=== PATIENT | female | born 1995 ===

== ENCOUNTER 2017-04-10 23:49 | Inpatient (IN) | payer MEDICAID ==
[2017-04-10 23:55] VITALS: BMI 27.3
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
[2017-04-11 00:28] LABS: BASO % 0.3 % (0.0-2.0); EOS % 0.2 % (0.0-4.0); HEMOGLOBIN 13.3 g/dL (12.0-16.0); LYMPH # 1.4 K/uL (1.0-4.3); LYMPH % 11.8 % (20.0-40.0); MEAN CELL VOLUME 86.9 fl (81.0-99.0); MEAN CORPUSCULAR HEMOGLOBIN 28.5 pg (27.0-31.0); MEAN CORPUSCULAR HGB CONC 32.8 g/dL (33.0-37.0); MEAN PLATELET VOLUME 8.6 fl (7.2-11.7); MONO # 0.8 K/uL (0.0-0.8); MONO % 6.6 % (0.0-10.0); NEUT # 9.8 K/uL (1.8-7.0); NEUT % 81.1 % (50.0-75.0); NRBC % 0.1 % (0.0-0.0); RBC 4.68 Mil/uL (3.80-5.20); RED CELL DISTRIBUTION WIDTH 13.4 % (11.5-14.5); WHITE BLOOD COUNT 12.1 K/uL (4.8-10.8)
[2017-04-11 00:34] LABS: SALICYLATE < 1.0 mg/dl
[2017-04-11 00:35] LABS: ACETAMINOPHEN < 10.0 ug/ml (10.0-30.0); ALB/GLOB RATIO 1.4 (1.0-2.1); ALBUMIN 5.1 g/dL (3.5-5.0); ALT/SGPT 38 U/L (9-52); AST/SGOT 42 U/L (14-36); BLOOD UREA NITROGEN 11 mg/dl (7-17); CALCIUM 9.2 mg/dL (8.4-10.2); GFR AFRICAN-AMERICAN > 60; GFR NON-AFRICAN AMERICAN > 60
[2017-04-11 04:08] VITALS: O2SAT 100
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
--- NOTE | 2017-04-11 05:21 | CT ---
EXAM: CT Cervical Spine Without Intravenous Contrast CLINICAL HISTORY: 22 years old, female; Pain; Neck pain; Additional info: Head injury intoxicated TECHNIQUE: Axial computed tomography images of the cervical spine without intravenous contrast. This CT exam was performed using one or more of the following dose reduction techniques: automated exposure control, adjustment of the mA and/or kV according to patient size, and/or use of iterative reconstruction technique. Coronal and sagittal reformatted images were created and reviewed. COMPARISON: No relevant prior studies available. FINDINGS: Vertebrae: No acute fracture. Alignment: Straightening and slight reversal of the normal curvature of the cervical spine, possibly muscular in origin. Discs/spinal canal/neural foramina: No acute findings. Soft tissues: Symmetric Lung apices: The visualized lung apices are clear. IMPRESSION: No acute fracture.
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
--- NOTE | 2017-04-11 05:58 | ED PDOC ---
- Laboratory Results Result Diagrams: 04/10/17 00:22 04/10/17 00:22 - ECG O2 Sat by Pulse Oximetry: 100 Medical Decision Making Medical Decision Makin Pt. resting comfortably. CT's negative. Seen by Crisis, to be admitted under Dr. Carmona with dx: Depression. Disposition - Clinical Impression Clinical Impression: Depression - POA Present On Arrival: None - Disposition Disposition: Admitted as In-Patient Disposition Time: 05:58 Condition: STABLE
[2017-04-11 07:53] LABS: BARBITURATES, UR NEGATIVE (NEGATIVE); BENZODIAZEPINES, UR NEGATIVE (NEGATIVE); OPIATES, UR NEGATIVE (NEGATIVE); PHENCYCLIDINE, UR NEGATIVE (NEGATIVE)
[2017-04-11] MEDS ORDERED: Alum-Mag Hydrox-Simethicone Susp (30 mL) PO PRN (11:43)
[2017-04-11] MEDS ORDERED: DiphenhydrAMINE 50 mg/ml Inj IM PRN (11:43)
[2017-04-11] MEDS ORDERED: Magnesium Hydroxide Susp 30 ml UD PO PRN (11:43)
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
[2017-04-11] MEDS: Multivitamin With Minerals Tab PO SCH (17:19)
[2017-04-12 06:56] LABS: HDL CHOLESTEROL 81 MG/DL (30-70)
[2017-04-12 07:08] LABS: LDL CHOLESTEROL 43 mg/dL (0-129)
[2017-04-12] MEDS: Multivitamin With Minerals Tab PO SCH (09:33)
--- NOTE | 2017-04-12 10:52 | PCM.PYCHPN ---
Psychiatric Progress Note - Psychiatric Progress Note Patient seen today, length of contact: discussed with team Patient Chief Complaint: how long do you think i need to stay? Problems Identified/Issues Discussed: pt now stating she does not think she is an alcoholic. she states "i enjoy drinking" she does not think her recent behavior is a problem. she continues to deny reliable memories about what happened prior to admission. 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 she has periods of irritability. she denies any withdrawal symptoms. Medical Problems: refused to go to therapy Medication Change: No Medical Record Reviewed: Yes Mental Status Examination - Cognitive Function Orientation: Person, Place, Situation, Time Memory: Intact Attention: WNL Association: WNL Fund of Knowledge: [facility] Decription of patient's judgement and insights: fair - Mood Mood: Depressed - Affect Affect: Depressed - Speech Speech: Appropriate - Formal Thought Process Formal Thought Process: No Impairment - Suicidal Ideation Suicidal Ideation: No - Homicidal Ideation Homicidal Ideation: No Goal/Treatment Plan - Goal/Treatment Plan Need for Continued Stay: Remain at risks for inpatient hospitalization, Discharge may exacerbated symptoms Progress Toward Problem(s) and Goals/Treatment Plan: alcohol dependence mood disorder unspecified will continue current treatment lower ativan tomorrow t/c starting an antidepressant, but as of now pt does not want disposition planning Estimated Date of D/C: 04/16/17
[2017-04-13] MEDS: Multivitamin With Minerals Tab PO SCH (10:32)
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
[2017-04-13 16:05] VITALS: BP 131/73; PULSE 91; RESP 18; TEMP 99.1
== END 2017-04-13 18:19 | disposition home or self-care (01) | DRG 751 ==
LOC: H.ER 23:49 → H.EROBSV 04-11 00:10 → H.ERHOLD 04-11 05:56 → OBSVTOIN 04-11 05:56 → H.PSYCH 04-11 06:54
PROVIDERS: ADMIT Psychiatry & Neurology Psychiatry; ATTEND Psychiatry & Neurology Psychiatry
PROC: HZ2ZZZZ Detoxification Services for Substance Abuse Treatment (ICD-10-PCS; principal; 2017-04-11)
PROC: HZ59ZZZ Individual Psychotherapy for Substance Abuse Treatment, Supportive (ICD-10-PCS; 2017-04-11)
PROC: GZHZZZZ Group Psychotherapy (ICD-10-PCS; 2017-04-11)
DX: F10.229 Alcohol dependence with intoxication, unspecified (principal); Z78.1 Physical restraint status; F32.9 Major depressive disorder, single episode, unspecified; F14.10 Cocaine abuse, uncomplicated; Y90.8 Blood alcohol level of 240 mg/100 ml or more; F17.210 Nicotine dependence, cigarettes, uncomplicated; F12.10 Cannabis abuse, uncomplicated; F39 Unspecified mood [affective] disorder

== ENCOUNTER 2018-04-12 10:46 | Inpatient (IN) | payer MEDICAID ==
[2018-04-12 11:03] VITALS: BMI 24.9
[2018-04-12] MEDS ORDERED: Sodium Chloride 0.9% 1,000 ML IV STA ×2 (11:25→17:01)
--- NOTE | 2018-04-12 11:27 | ED PDOC ---
HPI: Psych/Substance Abuse Time Seen by Provider: 04/12/18 11:14 Chief Complaint (Nursing): Psychiatric Evaluation Chief Complaint (Provider): Drank rubbing alcohol History Per: Patient History/Exam Limitations: no limitations Onset/Duration Of Symptoms: Hrs Current Symptoms Are (Timing): Still Present Modifying Factor(s): Alcohol Additional Complaint(s): 23 yo female with no medical problems presents with throat irrigation after drinking rubbing alcohol. Pt states she wanted to because her and her boyfriend broke up. Pt states she is tired and does not want to talk. Past Medical History Reviewed: Historical Data, Nursing Documentation, Vital Signs Vital Signs: Last Vital Signs Temp 97.2 F L 04/12/18 11:03 Pulse 103 H 04/12/18 11:03 Resp 17 04/12/18 11:03 BP 137/83 04/12/18 11:03 Pulse Ox 97 04/12/18 11:03 - Medical History PMH: No Chronic Diseases Denies: Diabetes, Hepatitis, HIV, HTN, Chronic Kidney Disease, Seizures, Sexually Transmitted Disease - Surgical History Surgical History: No Surg Hx - Family History Family History: States: Unknown Family Hx - Living Arrangements Living Arrangements: With Family - Social History Current smoker - smoking cessation education provided: No - Home Medications Home Medications: Ambulatory Orders Medication Instructions Recorded Pantoprazole [Protonix] 40 mg PO DAILY #30 ect 04/16/18 - Allergies Allergies/Adverse Reactions: Allergies Allergy/AdvReac Type Severity Reaction Status Date / Time No Known Allergies Allergy Verified 04/13/18 00:01 Review of Systems ROS Statement: Except As Marked, All Systems Reviewed And Found Negative Constitutional: Negative for: Fever, Chills ENT: Positive for: Throat Pain Gastrointestinal: Negative for: Nausea, Vomiting, Abdominal Pain Neurological: Negative for: Weakness, Numbness Physical Exam - Reviewed Nursing Documentation Reviewed: Yes Vital Signs Reviewed: Yes - Physical Exam Appears: Positive for: Well, Non-toxic, No Acute Distress Head Exam: Positive for: ATRAUMATIC, NORMAL INSPECTION, NORMOCEPHALIC Skin: Positive for: Normal Color, Warm, DRY Eye Exam: Positive for: Normal appearance, EOMI, PERRL ENT: Positive for: Normal ENT Inspection Neck: Positive for: Normal, Painless ROM Cardiovascular/Chest: Positive for: Regular Rate, Rhythm Respiratory: Positive for: CNT, Normal Breath Sounds Gastrointestinal/Abdominal: Positive for: Normal Exam, Soft Back: Positive for: Normal Inspection Extremity: Positive for: Normal ROM Neurologic/Psych: Positive for: Alert, accounting instructor II-XII, Oriented, Gait. Negative for : Aphasia - Laboratory Results Result Diagrams: 04/12/18 12:24 04/12/18 12:24 - ECG O2 Sat by Pulse Oximetry: 97 Medical Decision Making Medical Decision Makin - Discussed with Poison Control. Check for ketones in urine for isopropyl , may cause false elevation of creatinine. 1700 - Ketones 80 in urine. Pt prefers to drink water. Repeat urine ordered. 1819 - Mother states when she went home and the empty bottle was peroxide not rubbing alcohol. Mother states it was purchased over the counter. Contact poison control. They states OTC percentage can be irritating but wont cause damage. 1999 - Case discussed with Dr. More and Dr. Kitchen. Pt seen multiple times in ER sticking her fingers down her throat. Disposition - Clinical Impression Clinical Impression: Depression - Patient ED Disposition Is Patient to be Admitted: Yes - Disposition Disposition Time: 20:00 Condition: FAIR
[2018-04-12 12:46] LABS: ACETAMINOPHEN < 10.0 ug/ml (10.0-30.0); SALICYLATE < 1.0 mg/dl
[2018-04-12 12:53] LABS: BASO % 0.3 % (0.0-2.0); HEMOGLOBIN 12.4 g/dL (12.0-16.0); LYMPH # 0.7 K/uL (1.0-4.3); LYMPH % 5.3 % (20.0-40.0); MEAN CORPUSCULAR HEMOGLOBIN 28.9 pg (27.0-31.0); MEAN CORPUSCULAR HGB CONC 33.9 g/dL (33.0-37.0); MONO # 0.6 K/uL (0.0-0.8); MONO % 4.5 % (0.0-10.0); NEUT # 11.2 K/uL (1.8-7.0); NEUT % 89.9 % (50.0-75.0); NRBC % 0.1 % (0.0-0.0); PLATELET COUNT 305 K/uL (130-400); RBC 4.29 Mil/uL (3.80-5.20); RED CELL DISTRIBUTION WIDTH 15.4 % (11.5-14.5); WHITE BLOOD COUNT 12.4 K/uL (4.8-10.8)
[2018-04-12 12:55] LABS: BLOOD UREA NITROGEN 9 mg/dl (7-17); GFR NON-AFRICAN AMERICAN > 60
[2018-04-12 12:56] LABS: ALB/GLOB RATIO 1.5 (1.0-2.1); ALBUMIN 5.1 g/dL (3.5-5.0); AST/SGOT 40 U/L (14-36); CALCIUM 9.8 mg/dL (8.4-10.2)
[2018-04-12 12:57] LABS: ALT/SGPT 33 U/L (9-52)
[2018-04-12 14:46] LABS: LYMPHOCYTE 5 % (20-50); NEUTROPHIL 90 % (42-75); TOTAL CELLS COUNTED 100
[2018-04-12 14:47] LABS: ANISOCYTOSIS MODERATE; MICROCYTOSIS SLIGHT; MONOCYTE 5 % (0-10); OVALOCYTES MODERATE; PLATELET ESTIMATE NORMAL (NORMAL); TEARDROP CELLS SLIGHT
[2018-04-12 14:48] LABS: BURR CELLS SLIGHT; LARGE PLATELETS PRESENT
[2018-04-12 16:14] LABS: SQUAMOUS EPITHIAL 3 /hpf (0-5); URINE BACTERIA RARE (<OCC); URINE BILIRUBIN NEGATIVE (NEGATIVE); URINE BLOOD NEGATIVE (NEGATIVE); URINE CLARITY CLEAR (Clear); URINE COLOR YELLOW (YELLOW); URINE GLUCOSE (UA) 150 mg/dL (Normal); URINE LEUKOCYTE ESTERASE NEG Leu/uL (Negative); URINE PROTEIN NEGATIVE (NEGATIVE); URINE UROBILINOGEN 0.2-1.0 mg/dL (0.2-1.0)
[2018-04-12] MEDS ORDERED: Alum-Mag Hydrox-Simethicone Susp (30 mL) PO STA (16:31)
[2018-04-12 16:40] LABS: BARBITURATES, UR NEGATIVE (NEGATIVE); BENZODIAZEPINES, UR NEGATIVE (NEGATIVE); OPIATES, UR NEGATIVE (NEGATIVE); PHENCYCLIDINE, UR NEGATIVE (NEGATIVE)
--- NOTE | 2018-04-12 16:45 | RAD ---
Date of service: 04/12/2018 HISTORY: elevated wbc, alcohol abuse COMPARISON: No prior. TECHNIQUE: Chest PA and lateral FINDINGS: LUNGS: No active pulmonary disease. PLEURA: No significant pleural effusion identified. No pneumothorax apparent. CARDIOVASCULAR: Normal. OSSEOUS STRUCTURES: No significant abnormalities. VISUALIZED UPPER ABDOMEN: Normal. OTHER FINDINGS: None. IMPRESSION: No active disease.
[2018-04-12 20:34] VITALS: BP 153/60; RESP 20; TEMP 98
[2018-04-12] MEDS ORDERED: DiphenhydrAMINE 50 mg/ml Inj IM PRN (21:29)
[2018-04-12] MEDS ORDERED: Alum-Mag Hydrox-Simethicone Susp (30 mL) PO PRN (21:29)
[2018-04-12] MEDS ORDERED: Magnesium Hydroxide Susp 30 ml UD PO PRN (21:29)
--- NOTE | 2018-04-12 21:42 | PCM.BM ---
Treatment Plan Problems - Problems identified on initial assessmt Hopelessness/Helplessness Date Initiated: 04/12/18 Time Initiated: 21:41 Assessment reference: NA Status: Active Treatment assets and liabiliti Patient Assests: ADL independent, physically healthy, negotiates basic needs, cognitively intact Patient Liabilities: financial problems, poor support system, relationship conflicts, substance abuse - Milieu Protocol Maintain good personal hygiene: daily Encourage regular showers, daily Remind patient to perform daily oral care, daily Assist patient to perform ADL's Conduct patient checks and document Observation sheet: Q15 minutes Maintain personal safety: every shift Educate patient to report safety concerns to staff, every shift Monitor environment for contraband/sharps Medication safety: Monitor for expected outcome, potential side effects: every shift, Assess barriers to learning: every shift, Assess readiness for medication education: every shift
[2018-04-12] MEDS ORDERED: Trimethobenzamide 200 mg/2 mL Inj IM STA (22:09)
[2018-04-12 22:23] VITALS: PULSE 98
--- NOTE | 2018-04-15 13:59 | CARD ---
APPROVED REPORT Date of service: 04/12/2018 EKG Measurement Heart [id number] <Conclusion> Sinus tachycardia with frequent premature ventricular complexes and fusion complexes Otherwise normal ECG
[2018-04-16 18:44] VITALS: O2SAT 97
== END 2018-04-12 22:20 | disposition short-term general hospital (02) | DRG 450 ==
LOC: H.ER 10:46 → H.ERHOLD 19:43 → H.PSYCH 21:25
PROVIDERS: ADMIT Psychiatry & Neurology Psychiatry; ATTEND Psychiatry & Neurology Psychiatry
DX: T49.0X2A Poisoning by local antifungal, anti-infective and anti-inflammatory drugs, intentional self-harm, initial encounter (principal); Y92.9 Unspecified place or not applicable; J39.2 Other diseases of pharynx; T51.2X2A Toxic effect of 2-Propanol, intentional self-harm, initial encounter; F32.9 Major depressive disorder, single episode, unspecified

== ENCOUNTER 2018-04-12 22:29 | Inpatient (IN) | payer MEDICAID ==
[2018-04-12 22:38] VITALS: BMI 24.5
[2018-04-12] MEDS ORDERED: Sodium Chloride 0.9% 1,000 ML IV STA (22:38)
[2018-04-12] MEDS ORDERED: DiphenhydrAMINE 50 mg/ml Inj IVP STA (22:38)
[2018-04-12] MEDS ORDERED: DiphenhydrAMINE 50 mg/ml Inj ONE (22:47)
[2018-04-12 23:11] LABS: BASO % 0.1 % (0.0-2.0); HEMOGLOBIN 12.9 g/dL (12.0-16.0); LYMPH # 1.1 K/uL (1.0-4.3); LYMPH % 9.7 % (20.0-40.0); MEAN CELL VOLUME 85.3 fl (81.0-99.0); MEAN CORPUSCULAR HEMOGLOBIN 29.3 pg (27.0-31.0); MEAN CORPUSCULAR HGB CONC 34.4 g/dL (33.0-37.0); MEAN PLATELET VOLUME 8.8 fl (7.2-11.7); MONO # 0.5 K/uL (0.0-0.8); MONO % 4.5 % (0.0-10.0); NEUT # 9.3 K/uL (1.8-7.0); NEUT % 85.7 % (50.0-75.0); RBC 4.39 Mil/uL (3.80-5.20); RED CELL DISTRIBUTION WIDTH 14.9 % (11.5-14.5); WHITE BLOOD COUNT 10.9 K/uL (4.8-10.8)
--- NOTE | 2018-04-12 23:13 | ED PDOC ---
HPI:Nausea, Vomiting, Diarrhea Time Seen by Provider: 04/12/18 22:36 Chief Complaint (Provider): Vomiting History Per: Patient History/Exam Limitations: no limitations Onset/Duration Of Symptoms: Mins ([employer]) Current Symptoms Are (Timing): Still Present Quality Of Discomfort: "Pain" Associated Symptoms: Vomiting Additional Complaint(s): 23 year old female with a history of depression presents to the ED with acute onset, intractable vomiting and epigastric abdominal pain that began shortly before arrival to the ED. Prior to her arrival at the ED, the patient was admitted to the psychiatric floor of the hospital after she tried to commit suicide by drinking a bottle of over-the- counter hydrogen peroxide. Patient reports her vomit has blood present and was described as "coffee ground". She did not have any complaints of stomach pain or vomiting prior to admission. She was medically cleared upon her admission. Denies black or bloody stool. PMD: none provided Past Medical History Reviewed: Historical Data, Nursing Documentation, Vital Signs - Medical History PMH: Bipolar Disorder, Depression Denies: Diabetes, Hepatitis, HIV, HTN, Chronic Kidney Disease, Seizures, Sexually Transmitted Disease - Surgical History Surgical History: No Surg Hx - Family History Family History: States: Unknown Family Hx - Home Medications Home Medications: Ambulatory Orders Medication Instructions Recorded Pantoprazole [Protonix] 40 mg PO DAILY #30 ect 04/16/18 - Allergies Allergies/Adverse Reactions: Allergies Allergy/AdvReac Type Severity Reaction Status Date / Time No Known Allergies Allergy Verified 04/13/18 00:01 Review of Systems ROS Statement: Except As Marked, All Systems Reviewed And Found Negative Gastrointestinal: Positive for: Vomiting, Abdominal Pain (epigastric), Hematemesis Physical Exam - Reviewed Nursing Documentation Reviewed: Yes Vital Signs Reviewed: Yes - Physical Exam Appears: Positive for: In Acute Distress (acute gastrointestinal and painful distress) Head Exam: Positive for: ATRAUMATIC, NORMAL INSPECTION, NORMOCEPHALIC Skin: Positive for: Normal Color, Warm, DRY Eye Exam: Positive for: EOMI, Normal appearance, PERRL ENT: Positive for: Pharynx Is (clear), Other (tacky mucous membranes). Negative for: Pharyngeal Erythema Gastrointestinal/Abdominal: Positive for: Soft, Tenderness (epigastric tenderness to palpation). Negative for: Mass, Guarding, Rebound Neurologic/Psych: Positive for: Alert, Oriented. Negative for: Motor/Sensory Deficits - Laboratory Results Result Diagrams: 04/14/18 05:45 04/12/18 23:07 - ECG Pulse Ox Interpretation: Normal Medical Decision Making Medical Decision Making: Time: 22:38 Impression: 23 year old female with hemotemesis Differential diagnoses include but are not limited to:Gastritis, ulcers, coagulopathy, anemia Initial Plan: --blood type --CMP --lactic acid --Lipase --CBC --PTT --Prothrombin --Benadryl 25 mg IVP --NS IV --Protonix 40 mg IVP --Reglan 10 mg IVP --Zofran Inj 8 mg IV --1:1 observation Time; 11:50 --Case discussed with Dr. Nava, GI fellow. An additional 40 mg IV Protonix will be ordered and Dr. Nava will follow up with patient in the hospital. \\ --Discussed with poison control who reports hematemsis with peroxide ingestion is not typical. No additional recommendations given. Could still be due to initial report that patient drank rubbing alcohol. In addition, sitter reports she was witnessed to stick her finger down her throat multiple times in attempt to make herself vomit. --Discussed with Dr. Nicole, medical services --Patient will be admitted to Obs/Tele due to hematemesis and GI bleeding. ---- Scribe Attestation: Documented by Melissa Holm, acting as a scribe for Marysol Keita MD Provider Scribe Attestation: All medical record entries made by the Scribe were at my direction and personally dictated by me. I have reviewed the chart and agree that the record accurately reflects my personal performance of the history, physical exam, medical decision making, and the department course for this patient. I have also personally directed, reviewed, and agree with the discharge instructions and disposition. Disposition - Clinical Impression Clinical Impression: Suicide attempt, Depression, Gastritis - Patient ED Disposition Is Patient to be Admitted: Yes - Disposition Disposition Time: 23:50 Condition: FAIR - Pt Status Changed To: Hospital Disposition Of: Observation
[2018-04-12 23:22] LABS: ALB/GLOB RATIO 1.3 (1.0-2.1); ALBUMIN 5.2 g/dL (3.5-5.0); ALT/SGPT 31 U/L (9-52); AST/SGOT 40 U/L (14-36); BLOOD UREA NITROGEN 4 mg/dl (7-17); GFR AFRICAN-AMERICAN > 60; GFR NON-AFRICAN AMERICAN > 60; LIPASE 100 U/L (23-300)
[2018-04-12 23:24] LABS: PROTHROMBIN TIME 11.9 Seconds (9.8-13.1)
[2018-04-12 23:25] LABS: INR 1.1 (0.9-1.2); PARTIAL THROMBOPLASTIN TIME 27.3 Seconds (25.6-37.1)
[2018-04-13 07:24] LABS: HEMOGLOBIN 11.7 g/dL (12.0-16.0); MEAN CELL VOLUME 85.5 fl (81.0-99.0); MEAN CORPUSCULAR HEMOGLOBIN 28.8 pg (27.0-31.0); MEAN CORPUSCULAR HGB CONC 33.7 g/dL (33.0-37.0); RBC 4.07 Mil/uL (3.80-5.20); RED CELL DISTRIBUTION WIDTH 15.2 % (11.5-14.5)
[2018-04-13 08:08] LABS: HEMOGLOBIN 12.2 g/dL (12.0-16.0); MEAN CELL VOLUME 85.2 fl (81.0-99.0); MEAN CORPUSCULAR HEMOGLOBIN 28.8 pg (27.0-31.0); MEAN CORPUSCULAR HGB CONC 33.9 g/dL (33.0-37.0); RBC 4.23 Mil/uL (3.80-5.20); RED CELL DISTRIBUTION WIDTH 14.8 % (11.5-14.5); WHITE BLOOD COUNT 8.7 K/uL (4.8-10.8)
--- NOTE | 2018-04-13 08:25 | CP.PCM.CON ---
History of Present Illness - History of Present Illness History of Present Illness: Psychiatry consult note CC: "I drank rubbing alcohol." HPI: 23 yo female w/ h/o alcohol use disorder and depression, admitted to the medical unit s/p what she believes was injection of rubbing alcohol while she was acutely intoxicated on alcohol. It is unclear if she injested rubbing alcohol or hydrogen peroxide, as the mother found an empty bottle of hydrogen peroxide. Patient is now minimizing what she did, stating that it was not a suicide attempt and that she does not feel acutely depressed or suicidal. As per records, it may have been an intentional overdose. She is uncertain if she wants psychiatric treatment at this time. PPHx: H/o psychiatric admission to [facility] 03/2017 for depression and alcohol abuse; substance abuse tx at [facility]; no current outpatient treatment or medications ALL: NKDA SHx: Unemployed, uses marijuana and cocaine occasionally, +Alcohol abuse (>4 beers + vodka/day) MSE: A + O x 3, calm, cooperative, mood- "fine", affect- constricted, speech normal, thought process-linear/coherent, thought content- no delusions, denies SI/HI, poor I/J Impression: 23 yo female w/ h/o depression and alcohol use disorder presents s/ p overdose, possible suicide attempt. -Continue 1:1 for safety -Recommend inpatient psychiatric admission; if patient is not agreeable to voluntary admission would recommend that patient be screened for involuntary psychiatric admission Past Patient History - Past Medical History & Family History Past Medical History?: Yes - Past Social History Smoking Status: Never Smoked - CARDIAC Hx Cardiac Disorders: No Hx Hypertension: No - PULMONARY Hx Respiratory Disorders: No Hx Tuberculosis: No - NEUROLOGICAL Hx Neurological Disorder: No Hx Seizures: No - HEENT Hx HEENT Problems: No - RENAL Hx Chronic Kidney Disease: No - ENDOCRINE/METABOLIC Hx Endocrine Disorders: No - HEMATOLOGICAL/ONCOLOGICAL Hx Blood Disorders: No Hx Human Immunodeficiency Virus (HIV): No - INTEGUMENTARY Hx Dermatological Problems: No - MUSCULOSKELETAL/RHEUMATOLOGICAL Hx Musculoskeletal Disorders: No Hx Falls: No - GASTROINTESTINAL Hx Gastrointestinal Disorders: Yes Hx Vomiting: Yes - GENITOURINARY/GYNECOLOGICAL Hx Genitourinary Disorders: No Hx Sexually Transmitted Disorders: No - PSYCHIATRIC Hx Psychophysiologic Disorder: Yes Hx Depression: Yes Hx Substance Use: No - SURGICAL HISTORY Hx Surgeries: No - ANESTHESIA Hx Anesthesia: No Hx Anesthesia Reactions: No Hx Malignant Hyperthermia: No Has any member of the family had a problem w/ anesthesia?: No Meds Allergies/Adverse Reactions: Allergies Allergy/AdvReac Type Severity Reaction Status Date / Time No Known Allergies Allergy Verified 04/13/18 00:01 - Medications Medications: Current Medications Dextrose/Sodium Chloride (Dextrose 5%-0.9% Ns 500 Ml) 1,000 mls @ 100 mls/hr IV .Q10H DELFINO Last Admin: 04/13/18 06:04 Dose: 100 mls/hr Ondansetron HCl (Zofran Inj) 4 mg IVP Q6 DELFINO Pantoprazole Sodium (Protonix Inj) 40 mg IVP DAILY DELFINO Sucralfate (Carafate Oral Susp) 1 gm PO QID [facility] Results - Vital Signs Recent Vital Signs: Last Vital Signs Temp 98.7 F 04/13/18 08:00 Pulse 77 04/13/18 08:00 Resp 20 04/13/18 08:00 BP 113/71 04/13/18 08:00 Pulse Ox 98 04/13/18 08:00 - Labs Result Diagrams: 04/13/18 07:00 04/12/18 23:07 Labs: Laboratory Results - last 24 hr 04/12/18 04/12/18 04/12/18 22:40 23:07 23:07 WBC 10.9 H RBC 4.39 Hgb 12.9 Hct 37.5 MCV 85.3 MCH 29.3 MCHC 34.4 RDW 14.9 H Plt Count 308 MPV 8.8 Neut % (Auto) 85.7 H Lymph % (Auto) 9.7 L [place] % (Auto) 4.5 Eos % (Auto) 0.0 Baso % (Auto) 0.1 Neut # (Auto) 9.3 H Lymph # (Auto) 1.1 [place] # (Auto) 0.5 Eos # (Auto) 0.0 Baso # (Auto) 0.0 PT INR APTT Sodium 140 Potassium 3.7 Chloride 102 Carbon Dioxide 21 L Anion Gap 21 H BUN 4 L Creatinine 0.5 L Est GFR ( Amer) > 60 Est GFR (Non-Af Amer) > 60 Random Glucose 121 H Lactic Acid Calcium 10.0 Total Bilirubin 1.3 AST 40 H ALT 31 Alkaline Phosphatase 63 Total Protein 9.2 H Albumin 5.2 H Globulin 4.0 H Albumin/Globulin Ratio 1.3 Lipase 100 Blood Type B POSITIVE Antibody Screen Negative BBK History Checked No verified bt 04/12/18 04/12/18 04/13/18 23:07 23:07 06:30 WBC 9.0 RBC 4.07 Hgb 11.7 L Hct 34.8 MCV 85.5 MCH 28.8 MCHC 33.7 RDW 15.2 H Plt Count 277 MPV Neut % (Auto) Lymph % (Auto) [place] % (Auto) Eos % (Auto) Baso % (Auto) Neut # (Auto) Lymph # (Auto) [place] # (Auto) Eos # (Auto) Baso # (Auto) PT 11.9 INR 1.1 APTT 27.3 Sodium Potassium Chloride Carbon Dioxide Anion Gap BUN Creatinine Est GFR ( Amer) Est GFR (Non-Af Amer) Random Glucose Lactic Acid 1.4 Calcium Total Bilirubin AST ALT Alkaline Phosphatase Total Protein Albumin Globulin Albumin/Globulin Ratio Lipase Blood Type Antibody Screen BBK History Checked 04/13/18 07:00 WBC 8.7 RBC 4.23 Hgb 12.2 Hct 36.0 MCV 85.2 MCH 28.8 MCHC 33.9 RDW 14.8 H Plt Count 282 MPV Neut % (Auto) Lymph % (Auto) [place] % (Auto) Eos % (Auto) Baso % (Auto) Neut # (Auto) Lymph # (Auto) [place] # (Auto) Eos # (Auto) Baso # (Auto) PT INR APTT Sodium Potassium Chloride Carbon Dioxide Anion Gap BUN Creatinine Est GFR ( Amer) Est GFR (Non-Af Amer) Random Glucose Lactic Acid Calcium Total Bilirubin AST ALT Alkaline Phosphatase Total Protein Albumin Globulin Albumin/Globulin Ratio Lipase Blood Type Antibody Screen BBK History Checked
[2018-04-13] MEDS: Sucralfate 1 gm/10 ml Oral Susp UD PO SCH ×4 (08:29→21:16)
--- NOTE | 2018-04-13 09:22 | CP.PCM.CON ---
<Vanda Nava - Last Filed: 04/13/18 09:14> History of Present Illness - History of Present Illness History of Present Illness: Gastroenterology Fellow/PGY6 Consult Note 23 year old female with PMH of Polysubstance abuse presenting with peroxide ingestion and vomiting. Patient states she has been drinking four 24 ounce beers and a quart of vodka daily for the last week. She ingested 3% peroxide confirmed by mother and ER physician yesterday over the last three days as well and states she was not fully aware of what she was doing. She notes onset of over ten episodes of clear to bilious vomitus with blood streaks, dry heaves, attempts to induce vomiting and associated abdominal pain from retching leading to calling EMS. She was medically cleared and admitted to psych. She had one episode of clear vomitus with speaks of brown and small amounts of bright red tinge leading to transfer back to ER. Currently, she denies abdominal pain and notes back of her throat is sore from repeated vomiting. Denies further vomiting , hematemesis, chest pain, shortness of breath, melena, hematochezia, diarrhea, constipation, heartburn, or indigestion. Admits to formed yellow bowel movement this morning. Denies NSAID use. No prior EGD or colonoscopy. Family History- denies stomach cancer, colon cancer Social History- positive for cocaine, admits to daily beer/hard liquor for last year; quit tobacco Surgical History-none Review of Systems - Review of Systems Review of Systems: 12-point review of systems negative except for as above Past Patient History - Past Medical History & Family History Past Medical History?: Yes - Past Social History Smoking Status: Never Smoked - CARDIAC Hx Cardiac Disorders: No Hx Hypertension: No - PULMONARY Hx Respiratory Disorders: No Hx Tuberculosis: No - NEUROLOGICAL Hx Neurological Disorder: No Hx Seizures: No - HEENT Hx HEENT Problems: No - RENAL Hx Chronic Kidney Disease: No - ENDOCRINE/METABOLIC Hx Endocrine Disorders: No - HEMATOLOGICAL/ONCOLOGICAL Hx Blood Disorders: No Hx Human Immunodeficiency Virus (HIV): No - INTEGUMENTARY Hx Dermatological Problems: No - MUSCULOSKELETAL/RHEUMATOLOGICAL Hx Musculoskeletal Disorders: No Hx Falls: No - GASTROINTESTINAL Hx Gastrointestinal Disorders: Yes Hx Vomiting: Yes - GENITOURINARY/GYNECOLOGICAL Hx Genitourinary Disorders: No Hx Sexually Transmitted Disorders: No - PSYCHIATRIC Hx Psychophysiologic Disorder: Yes Hx Depression: Yes Hx Substance Use: No - SURGICAL HISTORY Hx Surgeries: No - ANESTHESIA Hx Anesthesia: No Hx Anesthesia Reactions: No Hx Malignant Hyperthermia: No Has any member of the family had a problem w/ anesthesia?: No Meds Allergies/Adverse Reactions: Allergies Allergy/AdvReac Type Severity Reaction Status Date / Time No Known Allergies Allergy Verified 04/13/18 00:01 - Medications Medications: Current Medications Dextrose/Sodium Chloride (Dextrose 5%-0.9% Ns 500 Ml) 1,000 mls @ 100 mls/hr IV .Q10H [facility] Last Admin: 04/13/18 06:04 Dose: 100 mls/hr Ondansetron HCl (Zofran Inj) 4 mg IVP Q6 [facility] Pantoprazole Sodium (Protonix Inj) 40 mg IVP DAILY [facility] Last Admin: 04/13/18 08:29 Dose: 40 mg Sucralfate (Carafate Oral Susp) 1 gm PO QID [facility] Last Admin: 04/13/18 08:29 Dose: 1 gm Physical Exam - Constitutional Appears: Non-toxic, No Acute Distress - Head Exam Head Exam: ATRAUMATIC, NORMOCEPHALIC - Eye Exam Eye Exam: EOMI, PERRL. absent: Scleral icterus Pupil Exam: PERRL. absent: Miosis, Mydriatic - ENT Exam ENT Exam: Mucous Membranes Moist, Normal Oropharynx - Neck Exam Neck exam: Positive for: Full Rom, Normal Inspection - Respiratory Exam Respiratory Exam: Clear to Auscultation Bilateral. absent: Rales, Rhonchi, Wheezes - Cardiovascular Exam Cardiovascular Exam: RRR, +S1, +S2. absent: Gallop, Rubs - GI/Abdominal Exam GI & Abdominal Exam: Normal Bowel Sounds, Soft. absent: Distended, Firm, Guarding, Organomegaly, Rebound, Rigid, Tenderness - Extremities Exam Extremities exam: Positive for: normal inspection. Negative for: pedal edema - Neurological Exam Neurological exam: Alert, Oriented x3 - Psychiatric Exam Psychiatric exam: Normal Affect, Normal Mood - Skin Skin Exam: Dry, Intact, Normal Color, Warm Results - Vital Signs Recent Vital Signs: Last Vital Signs Temp 98.7 F 04/13/18 08:00 Pulse 77 04/13/18 08:00 Resp 20 04/13/18 08:00 BP 113/71 04/13/18 08:00 Pulse Ox 98 04/13/18 08:00 - Labs Result Diagrams: 04/13/18 07:00 04/12/18 23:07 Labs: Laboratory Results - last 24 hr 04/12/18 04/12/18 04/12/18 22:40 23:07 23:07 WBC 10.9 H RBC 4.39 Hgb 12.9 Hct 37.5 MCV 85.3 MCH 29.3 MCHC 34.4 RDW 14.9 H Plt Count 308 MPV 8.8 Neut % (Auto) 85.7 H Lymph % (Auto) 9.7 L [place] % (Auto) 4.5 Eos % (Auto) 0.0 Baso % (Auto) 0.1 Neut # (Auto) 9.3 H Lymph # (Auto) 1.1 [place] # (Auto) 0.5 Eos # (Auto) 0.0 Baso # (Auto) 0.0 PT INR APTT Sodium 140 Potassium 3.7 Chloride 102 Carbon Dioxide 21 L Anion Gap 21 H BUN 4 L Creatinine 0.5 L Est GFR ( Amer) > 60 Est GFR (Non-Af Amer) > 60 Random Glucose 121 H Lactic Acid Calcium 10.0 Total Bilirubin 1.3 AST 40 H ALT 31 Alkaline Phosphatase 63 Total Protein 9.2 H Albumin 5.2 H Globulin 4.0 H Albumin/Globulin Ratio 1.3 Lipase 100 Blood Type B POSITIVE Antibody Screen Negative BBK History Checked No verified bt 04/12/18 04/12/18 04/13/18 23:07 23:07 06:30 WBC 9.0 RBC 4.07 Hgb 11.7 L Hct 34.8 MCV 85.5 MCH 28.8 MCHC 33.7 RDW 15.2 H Plt Count 277 MPV Neut % (Auto) Lymph % (Auto) [place] % (Auto) Eos % (Auto) Baso % (Auto) Neut # (Auto) Lymph # (Auto) [place] # (Auto) Eos # (Auto) Baso # (Auto) PT 11.9 INR 1.1 APTT 27.3 Sodium Potassium Chloride Carbon Dioxide Anion Gap BUN Creatinine Est GFR ( Amer) Est GFR (Non-Af Amer) Random Glucose Lactic Acid 1.4 Calcium Total Bilirubin AST ALT Alkaline Phosphatase Total Protein Albumin Globulin Albumin/Globulin Ratio Lipase Blood Type Antibody Screen BBK History Checked 04/13/18 07:00 WBC 8.7 RBC 4.23 Hgb 12.2 Hct 36.0 MCV 85.2 MCH 28.8 MCHC 33.9 RDW 14.8 H Plt Count 282 MPV Neut % (Auto) Lymph % (Auto) [place] % (Auto) Eos % (Auto) Baso % (Auto) Neut # (Auto) Lymph # (Auto) [place] # (Auto) Eos # (Auto) Baso # (Auto) PT INR APTT Sodium Potassium Chloride Carbon Dioxide Anion Gap BUN Creatinine Est GFR ( Amer) Est GFR (Non-Af Amer) Random Glucose Lactic Acid Calcium Total Bilirubin AST ALT Alkaline Phosphatase Total Protein Albumin Globulin Albumin/Globulin Ratio Lipase Blood Type Antibody Screen BBK History Checked Assessment & Plan - Assessment and Plan (Free Text) Assessment: 23 year old female with PMH of Polysubstance abuse presenting with peroxide ingestion and vomiting. Active treatment of intractable vomiting after peroxide ingestion and concern for suicidal ideation. No prior EGD or colonoscopy. Plan: -risk of esophageal mucosal injury is lower with peroxide solutions below 10% concentration -continue to monitor for tyler hematemesis and/or development of chest pain, or severe abdominal pain -CXR-no sign of esophageal perforation or acute pathology -continue NPO status today for close monitoring -supportive care- PPI, sucralfate -will follow clinic course <Delvin Moran Y - Last Filed: 04/13/18 09:37> Meds - Medications Medications: Current Medications Dextrose/Sodium Chloride (Dextrose 5%-0.9% Ns 500 Ml) 1,000 mls @ 100 mls/hr IV .Q10H [facility] Last Admin: 04/13/18 06:04 Dose: 100 mls/hr Ondansetron HCl (Zofran Inj) 4 mg IVP Q6 [facility] Pantoprazole Sodium (Protonix Inj) 40 mg IVP DAILY [facility] Last Admin: 04/13/18 08:29 Dose: 40 mg Sucralfate (Carafate Oral Susp) 1 gm PO QID [facility] Last Admin: 04/13/18 08:29 Dose: 1 gm Results - Vital Signs Recent Vital Signs: Last Vital Signs Temp 98.7 F 04/13/18 08:00 Pulse 77 04/13/18 08:00 Resp 20 04/13/18 08:00 BP 113/71 04/13/18 08:00 Pulse Ox 98 04/13/18 08:00 - Labs Result Diagrams: 04/13/18 07:00 04/12/18 23:07 Labs: Laboratory Results - last 24 hr 04/12/18 04/12/18 04/12/18 22:40 23:07 23:07 WBC 10.9 H RBC 4.39 Hgb 12.9 Hct 37.5 MCV 85.3 MCH 29.3 MCHC 34.4 RDW 14.9 H Plt Count 308 MPV 8.8 Neut % (Auto) 85.7 H Lymph % (Auto) 9.7 L [place] % (Auto) 4.5 Eos % (Auto) 0.0 Baso % (Auto) 0.1 Neut # (Auto) 9.3 H Lymph # (Auto) 1.1 [place] # (Auto) 0.5 Eos # (Auto) 0.0 Baso # (Auto) 0.0 PT INR APTT Sodium 140 Potassium 3.7 Chloride 102 Carbon Dioxide 21 L Anion Gap 21 H BUN 4 L Creatinine 0.5 L Est GFR ( Amer) > 60 Est GFR (Non-Af Amer) > 60 Random Glucose 121 H Lactic Acid Calcium 10.0 Total Bilirubin 1.3 AST 40 H ALT 31 Alkaline Phosphatase 63 Total Protein 9.2 H Albumin 5.2 H Globulin 4.0 H Albumin/Globulin Ratio 1.3 Lipase 100 Urine HCG, Qual Blood Type B POSITIVE Antibody Screen Negative BBK History Checked No verified bt 04/12/18 04/12/18 04/13/18 23:07 23:07 06:30 WBC 9.0 RBC 4.07 Hgb 11.7 L Hct 34.8 MCV 85.5 MCH 28.8 MCHC 33.7 RDW 15.2 H Plt Count 277 MPV Neut % (Auto) Lymph % (Auto) [place] % (Auto) Eos % (Auto) Baso % (Auto) Neut # (Auto) Lymph # (Auto) [place] # (Auto) Eos # (Auto) Baso # (Auto) PT 11.9 INR 1.1 APTT 27.3 Sodium Potassium Chloride Carbon Dioxide Anion Gap BUN Creatinine Est GFR ( Amer) Est GFR (Non-Af Amer) Random Glucose Lactic Acid 1.4 Calcium Total Bilirubin AST ALT Alkaline Phosphatase Total Protein Albumin Globulin Albumin/Globulin Ratio Lipase Urine HCG, Qual Blood Type Antibody Screen BBK History Checked 04/13/18 04/13/18 07:00 08:20 WBC 8.7 RBC 4.23 Hgb 12.2 Hct 36.0 MCV 85.2 MCH 28.8 MCHC 33.9 RDW 14.8 H Plt Count 282 MPV Neut % (Auto) Lymph % (Auto) [place] % (Auto) Eos % (Auto) Baso % (Auto) Neut # (Auto) Lymph # (Auto) [place] # (Auto) Eos # (Auto) Baso # (Auto) PT INR APTT Sodium Potassium Chloride Carbon Dioxide Anion Gap BUN Creatinine Est GFR ( Amer) Est GFR (Non-Af Amer) Random Glucose Lactic Acid Calcium Total Bilirubin AST ALT Alkaline Phosphatase Total Protein Albumin Globulin Albumin/Globulin Ratio Lipase Urine HCG, Qual Negative Blood Type Antibody Screen BBK History Checked Attending/Attestation - Attestation I have personally seen and examined this patient.: Yes I have fully participated in the care of the patient.: Yes I have reviewed all pertinent clinical information: Yes Notes (Text): 04/13/18 09:29 I have seen and examined patient with GI fellow. Agree with above documentation with the following additions. In brief, this is a 23 year old female with history of polysubstance abuse (recent ETOH/cocaine), who presents to hospital following suicide attempt by drinking a bottle of rubbing alcohol, hydrogen peroxide in the setting of binge ETOH consumption. She was initially admitted to psychiatric plascencia, however developed one episode of hematemesis and was transferred to medical floor. She endorses significant nausea and multiple episodes of non-bloody emesis over the past 3 days. She denies abdominal pain, fever/chills, weight loss, change in bowel habits, chest pain, odynophagia. She had a normal formed yellow bowel movement this morning. No prior endoscopic evaluation. Review of vitals from today are normal. Polysubstance abuse Recent suicide attempt, consumption of hydrogen peroxide, rubbing alcohol Hematemesis - NPO - H/H stable, continue to monitor - Continue with PPI and carafate regimen - Suggest anti-emetic therapy on standing basis for time being - Patient would likely benefit from outpatient elective endoscopic evaluation following resolution of acute symptoms to assess for esophageal caustic injury. Currently no indication for endoscopy. Will continue to monitor patient clinical course.
--- NOTE | 2018-04-13 16:07 | CP.PCM.HP ---
History of Present Illness - History of Present Illness History of Present Illness: CC: Hematemesis A 23 year old female with a history of depression presents to the ED with acute onset, intractable vomiting and epigastric abdominal pain that began shortly before arrival to the ED. Prior to her arrival at the ED, the patient was admitted to the psychiatric floor of the hospital after she tried to commit suicide by drinking a bottle of over-the- counter Rubbing Alcohol. Denies using hydrogen peroxide. Patient reports her vomit has blood present and was described as "coffee ground". She did not have any complaints of stomach pain or vomiting prior to admission. She was medically cleared upon her admission. Denies black or bloody stool. She was given IV Protonix 80mg in the ER, and Continued to Treat her with protonix IV. Denies dizziness today Present on Admission - Present on Admission Any Indicators Present on Admission: No Review of Systems - Review of Systems All systems: reviewed and no additional remarkable complaints except Past Patient History - Past Medical History & Family History Past Medical History?: Yes - Past Social History Smoking Status: Never Smoked Alcohol: Social Drugs: Denies - CARDIAC Hx Cardiac Disorders: No Hx Hypertension: No - PULMONARY Hx Respiratory Disorders: No Hx Tuberculosis: No - NEUROLOGICAL Hx Neurological Disorder: No Hx Seizures: No - HEENT Hx HEENT Problems: No - RENAL Hx Chronic Kidney Disease: No - ENDOCRINE/METABOLIC Hx Endocrine Disorders: No - HEMATOLOGICAL/ONCOLOGICAL Hx Blood Disorders: No Hx Human Immunodeficiency Virus (HIV): No - INTEGUMENTARY Hx Dermatological Problems: No - MUSCULOSKELETAL/RHEUMATOLOGICAL Hx Musculoskeletal Disorders: No Hx Falls: No - GASTROINTESTINAL Hx Gastrointestinal Disorders: Yes Hx Vomiting: Yes - GENITOURINARY/GYNECOLOGICAL Hx Genitourinary Disorders: No Hx Sexually Transmitted Disorders: No - PSYCHIATRIC Hx Psychophysiologic Disorder: Yes Hx Depression: Yes Hx Substance Use: No - SURGICAL HISTORY Hx Surgeries: No - ANESTHESIA Hx Anesthesia: No Hx Anesthesia Reactions: No Hx Malignant Hyperthermia: No Has any member of the family had a problem w/ anesthesia?: No Meds Home Medications: Home Medication List Medication Instructions Recorded Confirmed Type Pantoprazole [Protonix EC Tab] 40 mg PO DAILY ect 04/15/18 Rx Allergies/Adverse Reactions: Allergies Allergy/AdvReac Type Severity Reaction Status Date / Time No Known Allergies Allergy Verified 04/13/18 00:01 Physical Exam - Constitutional Appears: Well, No Acute Distress - Head Exam Head Exam: ATRAUMATIC, NORMAL INSPECTION, NORMOCEPHALIC - Eye Exam Eye Exam: EOMI, Normal appearance, PERRL Pupil Exam: NORMAL ACCOMODATION, PERRL - ENT Exam ENT Exam: Mucous Membranes Moist, Normal Exam - Neck Exam Neck exam: Positive for: Normal Inspection - Respiratory Exam Respiratory Exam: Clear to Auscultation Bilateral, NORMAL BREATHING PATTERN - Cardiovascular Exam Cardiovascular Exam: REGULAR RHYTHM, +S1, +S2 - GI/Abdominal Exam GI & Abdominal Exam: Normal Bowel Sounds, Soft, Tenderness. absent: Guarding, Rebound, Rigid - Extremities Exam Extremities exam: Positive for: normal capillary refill, normal inspection - Back Exam Back exam: NORMAL INSPECTION - Neurological Exam Neurological exam: Alert, CN II-XII Intact, Normal Gait, Oriented x3, Reflexes Normal - Psychiatric Exam Psychiatric exam: Normal Affect, Normal Mood - Skin Skin Exam: Dry, Intact, Normal Color, Warm Results - Vital Signs Recent Vital Signs: Last Vital Signs Temp 98 F 04/13/18 12:00 Pulse 60 04/13/18 12:00 Resp 18 04/13/18 12:00 BP 92/52 L 04/13/18 12:00 Pulse Ox 98 04/13/18 12:00 - Labs Result Diagrams: 04/14/18 05:45 04/12/18 23:07 Labs: Laboratory Results - last 24 hr 04/12/18 04/12/18 04/12/18 22:40 23:07 23:07 WBC 10.9 H RBC 4.39 Hgb 12.9 Hct 37.5 MCV 85.3 MCH 29.3 MCHC 34.4 RDW 14.9 H Plt Count 308 MPV 8.8 Neut % (Auto) 85.7 H Lymph % (Auto) 9.7 L [place] % (Auto) 4.5 Eos % (Auto) 0.0 Baso % (Auto) 0.1 Neut # (Auto) 9.3 H Lymph # (Auto) 1.1 [place] # (Auto) 0.5 Eos # (Auto) 0.0 Baso # (Auto) 0.0 PT INR APTT Sodium 140 Potassium 3.7 Chloride 102 Carbon Dioxide 21 L Anion Gap 21 H BUN 4 L Creatinine 0.5 L Est GFR ( Amer) > 60 Est GFR (Non-Af Amer) > 60 Random Glucose 121 H Lactic Acid Calcium 10.0 Total Bilirubin 1.3 AST 40 H ALT 31 Alkaline Phosphatase 63 Total Protein 9.2 H Albumin 5.2 H Globulin 4.0 H Albumin/Globulin Ratio 1.3 Lipase 100 Urine HCG, Qual Blood Type B POSITIVE Antibody Screen Negative BBK History Checked No verified bt 04/12/18 04/12/18 04/13/18 23:07 23:07 06:30 WBC 9.0 RBC 4.07 Hgb 11.7 L Hct 34.8 MCV 85.5 MCH 28.8 MCHC 33.7 RDW 15.2 H Plt Count 277 MPV Neut % (Auto) Lymph % (Auto) [place] % (Auto) Eos % (Auto) Baso % (Auto) Neut # (Auto) Lymph # (Auto) [place] # (Auto) Eos # (Auto) Baso # (Auto) PT 11.9 INR 1.1 APTT 27.3 Sodium Potassium Chloride Carbon Dioxide Anion Gap BUN Creatinine Est GFR ( Amer) Est GFR (Non-Af Amer) Random Glucose Lactic Acid 1.4 Calcium Total Bilirubin AST ALT Alkaline Phosphatase Total Protein Albumin Globulin Albumin/Globulin Ratio Lipase Urine HCG, Qual Blood Type Antibody Screen BBK History Checked 04/13/18 04/13/18 07:00 08:20 WBC 8.7 RBC 4.23 Hgb 12.2 Hct 36.0 MCV 85.2 MCH 28.8 MCHC 33.9 RDW 14.8 H Plt Count 282 MPV Neut % (Auto) Lymph % (Auto) [place] % (Auto) Eos % (Auto) Baso % (Auto) Neut # (Auto) Lymph # (Auto) [place] # (Auto) Eos # (Auto) Baso # (Auto) PT INR APTT Sodium Potassium Chloride Carbon Dioxide Anion Gap BUN Creatinine Est GFR ( Amer) Est GFR (Non-Af Amer) Random Glucose Lactic Acid Calcium Total Bilirubin AST ALT Alkaline Phosphatase Total Protein Albumin Globulin Albumin/Globulin Ratio Lipase Urine HCG, Qual Negative Blood Type Antibody Screen BBK History Checked Assessment & Plan (1) Hematemesis Assessment and Plan: NPO IVF IV Protonix Monitor H/H GI Consulted Status: Acute Priority: High (2) Suicide attempt Assessment and Plan: Major depression Continue Psych Follow Up and 1 to 1 Status: Acute Priority: High
[2018-04-14 06:19] LABS: HEMOGLOBIN 12.1 g/dL (12.0-16.0); MEAN CELL VOLUME 85.4 fl (81.0-99.0); MEAN CORPUSCULAR HEMOGLOBIN 29.1 pg (27.0-31.0); MEAN CORPUSCULAR HGB CONC 34.1 g/dL (33.0-37.0); RBC 4.14 Mil/uL (3.80-5.20); RED CELL DISTRIBUTION WIDTH 14.8 % (11.5-14.5); WHITE BLOOD COUNT 5.3 K/uL (4.8-10.8)
--- NOTE | 2018-04-14 07:04 | CP.PCM.PN ---
<Vanda Nava - Last Filed: 04/14/18 09:36> Subjective - Date & Time of Evaluation Date of Evaluation: 04/14/18 Time of Evaluation: 07:01 - Subjective Subjective: Gastroenterology Fellow/PGY6 Progress Note Patient feels well. Resolved sore throat, Denies abdominal pain,. Tolerated ice chips yesterday. One bowel movement yesterday. A 12-point review of systems negative except for as above. Objective - Vital Signs/Intake and Output Vital Signs (last 24 hours): Temp Pulse Resp BP Pulse Ox 98.6 F 52 L 18 120/76 99 04/14/18 04:57 04/14/18 04:57 04/14/18 04:57 04/14/18 04:57 04/14/18 04:57 - Medications Medications: Current Medications Dextrose/Sodium Chloride (Dextrose 5%-0.9% Ns 500 Ml) 1,000 mls @ 100 mls/hr IV .Q10H [facility] Last Admin: 04/14/18 06:33 Dose: 100 mls/hr Ondansetron HCl (Zofran Inj) 4 mg IVP Q6 PRN PRN Reason: Nausea/Vomiting Pantoprazole Sodium (Protonix Inj) 40 mg IVP BID [facility] Last Admin: 04/13/18 17:32 Dose: 40 mg Sucralfate (Carafate Oral Susp) 1 gm PO QID [facility] Last Admin: 04/13/18 21:16 Dose: 1 gm - Labs Labs: 04/14/18 05:45 04/12/18 23:07 PT 11.9 Seconds (9.8-13.1) 04/12/18 23:07 INR 1.1 (0.9-1.2) 04/12/18 23:07 APTT 27.3 Seconds (25.6-37.1) 04/12/18 23:07 - Constitutional Appears: Non-toxic, No Acute Distress - Head Exam Head Exam: ATRAUMATIC, NORMOCEPHALIC - Eye Exam Eye Exam: EOMI, PERRL. absent: Scleral icterus Pupil Exam: PERRL. absent: Miosis, Mydriatic - ENT Exam ENT Exam: Mucous Membranes Moist, Normal Oropharynx - Neck Exam Neck Exam: Full ROM, Normal Inspection - Respiratory Exam Respiratory Exam: Clear to Ausculation Bilateral. absent: Rales, Rhonchi, Wheezes - Cardiovascular Exam Cardiovascular Exam: RRR, +S1, +S2. absent: Gallop, Rubs - GI/Abdominal Exam GI & Abdominal Exam: Soft, Normal Bowel Sounds. absent: Distended, Firm, Guarding, Rigid, Tenderness, Organomegaly, Rebound - Extremities Exam Extremities Exam: Full ROM, Normal Inspection. absent: Pedal Edema - Neurological Exam Neurological Exam: Alert, Awake, Oriented x3 - Psychiatric Exam Psychiatric exam: Normal Affect, Normal Mood Assessment and Plan - Assessment and Plan (Free Text) Assessment: 23 year old female with PMH of Polysubstance abuse presenting with peroxide ingestion and vomiting. Active treatment of intractable vomiting after peroxide ingestion concerning for suicidal attempt. No prior EGD or colonoscopy. Plan: -tolerating clear liquids -anti-emetics PRN -counselled on ingestion of toxic substances and risks associated -continue PPI and sucralfate -advance diet as tolerated to soft diet -outpatient follow up for possible EGD if indicated to evaluate for esophageal caustic injury <Delvin Moran - Last Filed: 04/14/18 09:42> Objective - Vital Signs/Intake and Output Vital Signs (last 24 hours): Temp Pulse Resp BP Pulse Ox 98 F 57 L 18 120/76 99 04/14/18 08:00 04/14/18 08:12 04/14/18 08:00 04/14/18 08:00 04/14/18 08:00 - Medications Medications: Current Medications Dextrose/Sodium Chloride (Dextrose 5%-0.9% Ns 500 Ml) 1,000 mls @ 100 mls/hr IV .Q10H [facility] Last Admin: 04/14/18 06:33 Dose: 100 mls/hr Ondansetron HCl (Zofran Inj) 4 mg IVP Q6 PRN PRN Reason: Nausea/Vomiting Pantoprazole Sodium (Protonix Inj) 40 mg IVP BID [facility] Last Admin: 04/14/18 09:29 Dose: 40 mg Sucralfate (Carafate Oral Susp) 1 gm PO QID [facility] Last Admin: 04/14/18 09:30 Dose: 1 gm - Labs Labs: 04/14/18 05:45 04/12/18 23:07 PT 11.9 Seconds (9.8-13.1) 04/12/18 23:07 INR 1.1 (0.9-1.2) 04/12/18 23:07 APTT 27.3 Seconds (25.6-37.1) 04/12/18 23:07 Attending/Attestation - Attestation I have personally seen and examined this patient.: Yes I have fully participated in the care of the patient.: Yes I have reviewed all pertinent clinical information, including history, physical exam and plan: Yes Notes (Text): 04/14/18 09:39 I have seen and examined patient with GI fellow. No acute events overnight, she is seen resting in bed comfortably. She denies abdominal pain, nausea, vomiting, fever/chills, odynophagia. Tolerating PO liquids without difficulty. Review of vitals from today are normal. Polysubstance abuse Recent suicide attempt following ingestion of rubbing alcohol, hyrdogen peroxide in setting of binge ETOH use Hematemesis - Advance diet slowly as tolerated - Anti-emetic therapy PRN - H/H stable, continue to monitor - Continue with PPI and carafate regimen - Patient would benefit from elective outpatient EGD for evaluation of esophagus due to caustic chemical ingestion. This should be performed following completion of psychiatric treatment. No planned GI interventions at this time, will sign off case. Please reconsult as necessary, thank you.
[2018-04-14] MEDS: Sucralfate 1 gm/10 ml Oral Susp UD PO SCH ×4 (09:30→21:54)
--- NOTE | 2018-04-14 14:54 | CP.PCM.PN ---
Subjective - Date & Time of Evaluation Date of Evaluation: 04/14/18 Time of Evaluation: 14:05 - Subjective Subjective: Seen and examined at the bed side. No more hematemesis and abdominal pain. Denies dizziness. H/H stable. Objective - Vital Signs/Intake and Output Vital Signs (last 24 hours): Temp Pulse Resp BP Pulse Ox 98.1 F 62 20 110/67 99 04/14/18 12:00 04/14/18 12:00 04/14/18 12:00 04/14/18 12:00 04/14/18 12:00 - Medications Medications: Current Medications Dextrose/Sodium Chloride (Dextrose 5%-0.9% Ns 500 Ml) 1,000 mls @ 100 mls/hr IV .Q10H [facility] Last Admin: 04/14/18 06:33 Dose: 100 mls/hr Ondansetron HCl (Zofran Inj) 4 mg IVP Q6 PRN PRN Reason: Nausea/Vomiting Pantoprazole Sodium (Protonix Inj) 40 mg IVP BID [facility] Last Admin: 04/14/18 09:29 Dose: 40 mg Sucralfate (Carafate Oral Susp) 1 gm PO QID [facility] Last Admin: 04/14/18 12:46 Dose: 1 gm - Labs Labs: 04/14/18 05:45 04/12/18 23:07 PT 11.9 Seconds (9.8-13.1) 04/12/18 23:07 INR 1.1 (0.9-1.2) 04/12/18 23:07 APTT 27.3 Seconds (25.6-37.1) 04/12/18 23:07 - Constitutional Appears: Well, No Acute Distress - Head Exam Head Exam: ATRAUMATIC, NORMAL INSPECTION, NORMOCEPHALIC - Eye Exam Eye Exam: EOMI, Normal appearance, PERRL Pupil Exam: NORMAL ACCOMODATION, PERRL - ENT Exam ENT Exam: Mucous Membranes Moist, Normal Exam - Neck Exam Neck Exam: Full ROM, Normal Inspection. absent: Lymphadenopathy - Respiratory Exam Respiratory Exam: Clear to Ausculation Bilateral, NORMAL BREATHING PATTERN - Cardiovascular Exam Cardiovascular Exam: REGULAR RHYTHM, +S1, +S2. absent: Murmur - GI/Abdominal Exam GI & Abdominal Exam: Soft, Normal Bowel Sounds. absent: Tenderness - Extremities Exam Extremities Exam: Full ROM, Normal Capillary Refill, Normal Inspection. absent : Joint Swelling, Pedal Edema - Back Exam Back Exam: NORMAL INSPECTION - Neurological Exam Neurological Exam: Alert, Awake, CN II-XII Intact, Normal Gait, Oriented x3 - Psychiatric Exam Psychiatric exam: Normal Affect, Normal Mood - Skin Skin Exam: Dry, Intact, Normal Color, Warm Assessment and Plan (1) Hematemesis Status: Resolved (2) Suicide attempt Status: Acute (3) Depression Status: Acute - Assessment and Plan (Free Text) Assessment: Stable Plan: Continue Current Care for Possible Transfer to Psych Unit if Cleared by GI
[2018-04-15] MEDS: Pantoprazole 40 mg EC Tab PO SCH (08:38)
[2018-04-15] MEDS: Sucralfate 1 gm/10 ml Oral Susp UD PO SCH ×4 (08:39→21:32)
[2018-04-15] MEDS ORDERED: Pneumococcal 23-Valent Vaccine IM ONE (15:30)
--- NOTE | 2018-04-15 23:07 | CP.PCM.PN ---
Subjective - Date & Time of Evaluation Date of Evaluation: 04/15/18 Time of Evaluation: 12:30 Objective - Vital Signs/Intake and Output Vital Signs (last 24 hours): Temp Pulse Resp BP Pulse Ox 98.3 F 72 20 91/52 L 99 04/15/18 18:57 04/15/18 20:16 04/15/18 18:57 04/15/18 18:57 04/15/18 18:57 - Medications Medications: Current Medications Ondansetron HCl (Zofran Inj) 4 mg IVP Q6 PRN PRN Reason: Nausea/Vomiting Pantoprazole Sodium (Protonix Ec Tab) 40 mg PO DAILY [facility] Last Admin: 04/15/18 08:38 Dose: 40 mg Sucralfate (Carafate Oral Susp) 1 gm PO QID [facility] Last Admin: 04/15/18 21:32 Dose: 1 gm - Labs Labs: 04/14/18 05:45 04/12/18 23:07 PT 11.9 Seconds (9.8-13.1) 04/12/18 23:07 INR 1.1 (0.9-1.2) 04/12/18 23:07 APTT 27.3 Seconds (25.6-37.1) 04/12/18 23:07 Assessment and Plan (1) Hematemesis Status: Resolved (2) Suicide attempt Status: Acute (3) Depression Status: Acute
[2018-04-16 01:06] LABS: SQUAMOUS EPITHIAL 3 /hpf (0-5); URINE BACTERIA OCC (<OCC); URINE BILIRUBIN NEGATIVE (NEGATIVE); URINE BLOOD MODERATE (NEGATIVE); URINE CLARITY SLIGHTY-CLOUDY (Clear); URINE COLOR YELLOW (YELLOW); URINE GLUCOSE (UA) NEG (Normal); URINE LEUKOCYTE ESTERASE NEG Leu/uL (Negative); URINE PROTEIN NEGATIVE (NEGATIVE); URINE UROBILINOGEN 0.2-1.0 mg/dL (0.2-1.0)
[2018-04-16 01:20] LABS: BARBITURATES, UR NEGATIVE (NEGATIVE); BENZODIAZEPINES, UR NEGATIVE (NEGATIVE); OPIATES, UR NEGATIVE (NEGATIVE); PHENCYCLIDINE, UR NEGATIVE (NEGATIVE)
[2018-04-16] MEDS: Pantoprazole 40 mg EC Tab PO SCH (08:36)
[2018-04-16] MEDS: Sucralfate 1 gm/10 ml Oral Susp UD PO SCH ×2 (09:57→14:46)
[2018-04-16 12:41] VITALS: BP 121/77; PULSE 64; RESP 20; TEMP 97.8; O2SAT 99
--- NOTE | 2018-04-16 13:53 | CP.PCM.PCO ---
Assessment/Plan - Assessment and Plan (Free Text) Assessment: Patient seen and examined VSS, patient Aox3, calm cooperative follows commands appropriately Patient visited by [facility] screeners, does not meet criteria for involuntary admission Dr Carmona made aware, ok to dc home with outpatient psych follow up Discussed with Dr Nicole who agrees with plan. DC home on protonix, pt adviced to have outpatient GI follow up with Dr cloud for egd outpatient
--- NOTE | 2018-04-16 17:23 | CP.PCM.DIS ---
Provider - Provider Date of Admission: 04/14/18 15:31 Attending physician: Lorenzo Nicole MD Diagnosis - Discharge Diagnosis (1) Hematemesis Status: Resolved Priority: High (2) Suicide attempt Status: Acute Priority: High (3) Depression Status: Acute Hospital Course - Lab Results Lab Results: Most Recent Lab Values WBC 5.3 K/uL (4.8-10.8) 04/14/18 05:45 RBC 4.14 Mil/uL (3.80-5.20) 04/14/18 05:45 Hgb 12.1 g/dL (12.0-16.0) 04/14/18 05:45 Hct 35.4 % (34.0-47.0) 04/14/18 05:45 MCV 85.4 fl (81.0-99.0) 04/14/18 05:45 MCH 29.1 pg (27.0-31.0) 04/14/18 05:45 MCHC 34.1 g/dL (33.0-37.0) 04/14/18 05:45 RDW 14.8 % (11.5-14.5) H 04/14/18 05:45 Plt Count 256 K/uL (130-400) 04/14/18 05:45 MPV 8.8 fl (7.2-11.7) 04/12/18 23:07 Neut % (Auto) 85.7 % (50.0-75.0) H 04/12/18 23:07 Lymph % (Auto) 9.7 % (20.0-40.0) L 04/12/18 23:07 [place] % (Auto) 4.5 % (0.0-10.0) 04/12/18 23:07 Eos % (Auto) 0.0 % (0.0-4.0) 04/12/18 23:07 Baso % (Auto) 0.1 % (0.0-2.0) 04/12/18 23:07 Neut # (Auto) 9.3 K/uL (1.8-7.0) H 04/12/18 23:07 Lymph # (Auto) 1.1 K/uL (1.0-4.3) 04/12/18 23:07 [place] # (Auto) 0.5 K/uL (0.0-0.8) 04/12/18 23:07 Eos # (Auto) 0.0 K/uL (0.0-0.7) 04/12/18 23:07 Baso # (Auto) 0.0 K/uL (0.0-0.2) 04/12/18 23:07 PT 11.9 Seconds (9.8-13.1) 04/12/18 23:07 INR 1.1 (0.9-1.2) 04/12/18 23:07 APTT 27.3 Seconds (25.6-37.1) 04/12/18 23:07 Sodium 140 mmol/l (132-148) 04/12/18 23:07 Potassium 3.7 MMOL/L (3.6-5.0) 04/12/18 23:07 Chloride 102 mmol/L (98-107) 04/12/18 23:07 Carbon Dioxide 21 mmol/L (22-30) L 04/12/18 23:07 Anion Gap 21 (10-20) H 04/12/18 23:07 BUN 4 mg/dl (7-17) L 04/12/18 23:07 Creatinine 0.5 mg/dl (0.7-1.2) L 04/12/18 23:07 Est GFR ( Amer) > 60 04/12/18 23:07 Est GFR (Non-Af Amer) > 60 04/12/18 23:07 Random Glucose 121 mg/dL (65-105) H 04/12/18 23:07 Lactic Acid 1.4 MMOL/L (0.7-2.1) 04/12/18 23:07 Calcium 10.0 mg/dL (8.4-10.2) 04/12/18 23:07 Total Bilirubin 1.3 mg/dl (0.2-1.3) 04/12/18 23:07 AST 40 U/L (14-36) H 04/12/18 23:07 ALT 31 U/L (9-52) 04/12/18 23:07 Alkaline Phosphatase 63 U/L (38-126) 04/12/18 23:07 Total Protein 9.2 G/DL (6.3-8.2) H 04/12/18 23:07 Albumin 5.2 g/dL (3.5-5.0) H 04/12/18 23:07 Globulin 4.0 gm/dL (2.2-3.9) H 04/12/18 23:07 Albumin/Globulin Ratio 1.3 (1.0-2.1) 04/12/18 23:07 Lipase 100 U/L (23-300) 04/12/18 23:07 Urine Color Yellow (YELLOW) 04/16/18 00:58 Urine Clarity Slighty-cloudy (Clear) 04/16/18 00:58 Urine pH 7.0 (5.0-8.0) 04/16/18 00:58 Ur Specific [place] 1.010 (1.003-1.030) 04/16/18 00:58 Urine Protein Negative mg/dL (NEGATIVE) 04/16/18 00:58 Urine Glucose (UA) Neg mg/dL (Normal) 04/16/18 00:58 Urine Ketones Negative mg/dL (NEGATIVE) 04/16/18 00:58 Urine Blood Moderate (NEGATIVE) 04/16/18 00:58 Urine Nitrate Negative (NEGATIVE) 04/16/18 00:58 Urine Bilirubin Negative (NEGATIVE) 04/16/18 00:58 Urine Urobilinogen 0.2-1.0 mg/dL (0.2-1.0) 04/16/18 00:58 Ur Leukocyte Esterase Neg Reji/uL (Negative) 04/16/18 00:58 Urine RBC (Auto) 8 /hpf (0-3) H 04/16/18 00:58 Ur Squamous Epith Cells 3 /hpf (0-5) 04/16/18 00:58 Urine Bacteria Occ (<OCC) H 04/16/18 00:58 Urine HCG, Qual Negative (NEGATIVE) 04/13/18 08:20 Urine Opiates Screen Negative (NEGATIVE) 04/16/18 00:58 Urine Methadone Screen Negative (NEGATIVE) 04/16/18 00:58 Ur Barbiturates Screen Negative (NEGATIVE) 04/16/18 00:58 Ur Phencyclidine Scrn Negative (NEGATIVE) 04/16/18 00:58 Ur Amphetamines Screen Negative (NEGATIVE) 04/16/18 00:58 U Benzodiazepines Scrn Negative (NEGATIVE) 04/16/18 00:58 U Oth Cocaine Metabols Negative (NEGATIVE) 04/16/18 00:58 U Cannabinoids Screen Positive (NEGATIVE) H 04/16/18 00:58 Alcohol, Quantitative < 10 mg/dl (0-10) 04/15/18 18:41 Blood Type B POSITIVE 04/12/18 22:40 Antibody Screen Negative 04/12/18 22:40 BBK History Checked No verified bt 04/12/18 22:40 Discharge Exam - Head Exam Head Exam: ATRAUMATIC, NORMAL INSPECTION, NORMOCEPHALIC Discharge Plan - Discharge Medications Prescriptions: Pantoprazole [Protonix] 40 mg PO DAILY #30 ect - Follow Up Plan Condition: FAIR Disposition: HOME/ ROUTINE Instructions: Depression, Adult (DC) Additional Instructions: follow with dr cloud in 1 week follow with in 1 week Referrals: Delvin Cloud MD [Medical Doctor] - Geneva Carmona MD [Medical Doctor] -
== END 2018-04-16 15:15 | disposition home or self-care (01) | DRG 174 ==
LOC: H.ER 22:29 → H.ERHOLD 23:50 → H.TEL 04-13 01:54 → OBSVTOIN 04-14 15:31
PROVIDERS: ADMIT Internal Medicine; ATTEND Internal Medicine
PROC: 3E0234Z Introduction of Serum, Toxoid and Vaccine into Muscle, Percutaneous Approach (ICD-10-PCS; principal; 2018-04-15)
DX: K92.0 Hematemesis (principal); F14.10 Cocaine abuse, uncomplicated; F12.90 Cannabis use, unspecified, uncomplicated; F10.10 Alcohol abuse, uncomplicated; F31.9 Bipolar disorder, unspecified; Z91.5 Personal history of self-harm; Z23 Encounter for immunization; Z87.891 Personal history of nicotine dependence